=== PATIENT | female | born 1950 | race Caucasian/White ===

== ENCOUNTER → 2017-10-15 | Outpatient (REF) | payer MEDICARE | LOC: M WUC 12:12 | DX: N39.0 Urinary tract infection, site not specified (principal) | CPT/HCPCS: 87186 ==

== ENCOUNTER → 2017-10-22 | Outpatient (REF) | payer MEDICARE | LOC: M LAB REF 10:00 | DX: R30.0 Dysuria (principal) | CPT/HCPCS: 87086 ==

== ENCOUNTER → 2018-01-28 | Outpatient (REF) | payer MEDICARE | LOC: M LAB REF 17:41 | DX: R30.0 Dysuria (principal) | CPT/HCPCS: 87086 ==

== ENCOUNTER 2019-01-11 10:40 | Day surgery (SDC) | payer MEDICARE ==
[~2019-01-11] VITALS: Ht 167.6 cm; Wt 54.4 kg
[~2019-01-11 10:40] MED LIST: AMBIEN PO; AUGM875T27 PO; CELE1CAP4 PO; CIPR250T2 PO; CIPR500T89 PO; CRAN450T4 PO; FLAG500T PO; MAPA500T17 PO; MIRA3350 PO; OMEP40CA2 PO; ONDA-228 PO; OXYC-208 PO; OXYC5TAB2 PO; PROBCAP17 PO; QC A650T3 PO
[2019-01-11] MEDS ORDERED: PROPOFOL 500 MG/50 ML VIAL As Ordered ONE (11:36)
[2019-01-11] MEDS ORDERED: NS 1,000 ML IV ONE (12:15)
[2019-01-11] MEDS ORDERED: LIDOCAINE 2% INJ 100 MG/5 ML SDV (FOR ANES.) As Ordered ONE (12:28)
--- NOTE | 2019-01-11 13:15 | ROOR ---
Patient Name: Luisa Ridley Procedure Date: 01/11/2019 12:54 PM Date of : 1950 Age: 68 Room: [facility] Gender: Female Note Status: Finalized Procedure: Upper GI endoscopy Indications: Abdominal pain Providers: Sae MARQUEZ MD Referring MD: Karrie Dobson NP Requesting Provider: Medicines: Monitored Anesthesia Care Complications: No immediate complications. Procedure: Pre-Anesthesia Assessment: - The heart rate, respiratory rate, oxygen saturations, blood pressure, adequacy of pulmonary ventilation, and response to care were monitored throughout the procedure. The Endoscope was introduced through the mouth, and advanced to the second part of duodenum. The upper GI endoscopy was accomplished without difficulty. The patient tolerated the procedure well. Findings: The examined esophagus was normal. Mild gastritis, Biopsies were taken with a cold forceps for histology. Small Hiatal Hernia. The exam of the stomach was otherwise normal. The examined duodenum was normal. Impression: - Normal esophagus. - Minimal gastritis. Biopsied - Small Hiatal Hernia. - The stomach is otherwise normal. - Normal examined duodenum. Recommendation: - Observe patient's clinical course. - Continue present medications. - Telephone endoscopist for pathology results in 2 weeks. Sae Marquez MD Sae MARQUEZ MD 01/11/2019 1:14:48 PM Electronically signed by Sae MARQUEZ MD Number of Addenda: 0 Note Initiated On: 01/11/2019 12:54 PM Estimated Blood Loss: Estimated blood loss: none.
--- NOTE | 2019-01-11 13:37 | ROOR ---
Patient Name: Luisa Ridley Procedure Date: 01/11/2019 12:55 PM Date of : 1950 Age: 68 Room: [facility] Gender: Female Note Status: Finalized Procedure: Colonoscopy Indications: Positive fecal immunochemical test Providers: Sae MARQUEZ MD Referring MD: Karrie Dobson NP Requesting Provider: Medicines: Monitored Anesthesia Care Complications: No immediate complications. Procedure: Pre-Anesthesia Assessment: - The heart rate, respiratory rate, oxygen saturations, blood pressure, adequacy of pulmonary ventilation, and response to care were monitored throughout the procedure. The Colonoscope was introduced through the anus and advanced to 10 cm into the ileum. The colonoscopy was performed without difficulty. The patient tolerated the procedure well. The quality of the bowel preparation was good. Findings: The perianal and digital rectal examinations were normal. Two flat polyps were found in the sigmoid colon and cecum. The polyps were 5 to 7 mm in size. These polyps were removed with a cold snare. Resection and retrieval were complete. Small Internal Hemorrhoids. The exam was otherwise normal throughout the examined colon. The terminal ileum appeared normal. Retroflexion in the right colon was performed. Impression: - Two 5 to 7 mm polyps in the sigmoid colon and in the cecum, removed with a cold snare. Resected and retrieved. - Small Internal Hemorrhoids. - The colon is otherwise normal. - The examined portion of the ileum was normal. Recommendation: - Repeat colonoscopy in 5 years for surveillance. - Telephone endoscopist for pathology results in 2 weeks. Sae Marquez MD Sae MARQUEZ MD 01/11/2019 1:37:15 PM Electronically signed by Sae MARQUEZ MD Number of Addenda: 0 Note Initiated On: 01/11/2019 12:55 PM Estimated Blood Loss: Estimated blood loss: none.
[2019-01-11 14:28] VITALS: BP 112/68
== END 2019-01-11 14:49 | disposition home or self-care (01) ==
LOC: M OPP 10:40
PROVIDERS: ATTEND Internal Medicine Gastroenterology
DX: D12.5 Benign neoplasm of sigmoid colon (principal); D12.0 Benign neoplasm of cecum; K64.8 Other hemorrhoids; R10.9 Unspecified abdominal pain; K44.9 Diaphragmatic hernia without obstruction or gangrene